=== PATIENT | male | born 1980 | race American Indian/Alaskan Native ===

== ENCOUNTER 2017-12-03 08:36 | Emergency (ER) | payer MEDICARE ==
[2017-12-03 08:36] VITALS: PULSE 69; BMI 30.7
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
[2017-12-03 11:44] VITALS: BP 143/86; PULSE 60; RESP 18; TEMP 98.7
--- NOTE | 2017-12-03 13:04 | VASCLAB ---
PROCEDURE: Right Lower Extremity Venous Duplex Exam. HISTORY: right leg pain, swelling, r/o DVT PRIORS: None. TECHNIQUE: Right common femoral, femoral, popliteal and posterior tibial, peroneal and great saphenous veins were evaluated. Flow was assessed with color Doppler, compressibility, assessment of phasic flow and augmentation response. Report prepared by Mya Pleitez RDCS, RVS FINDINGS: RIGHT: 1. Common Femoral Vein: 1.1. Compressibility - Fully compressible: Thrombus - None: Flow - Phasic: Augmentation -Normal: Reflux - None. 2. Femoral Vein: 2.1. Compressibility - Fully compressible: Thrombus - None: Flow - Phasic: Augmentation -Normal: Reflux - None. 3. Popliteal Vein: 3.1. Compressibility - Fully compressible: Thrombus - None: Flow - Phasic: Augmentation -Normal: Reflux - None. 4. Posterior Tibial Vein: 4.1. Compressibility - Fully compressible: Thrombus - None: Flow - Phasic: Augmentation -Normal: Reflux - None. 5. Peroneal Vein: 5.1. Compressibility - Fully compressible: Thrombus - None: Flow - Phasic: Augmentation -Normal: Reflux - None. 6. Great Saphenous Vein: 6.1. Compressibility - Fully compressible: Thrombus -None: Flow - Phasic: Augmentation - Normal: Reflux - None. OTHER FINDINGS: IMPRESSION: No evidence of deep or superficial vein thrombosis of the right lower extremity with excellent venous flow. Normal valve function noted of the right side. Normal venous flow noted in the left common femoral vein.
[2017-12-05 18:35] VITALS: O2SAT 98
== END 2017-12-03 11:45 | disposition home or self-care (01) ==
LOC: C.ER 08:36
DX: L03.115 Cellulitis of right lower limb (principal); I10 Essential (primary) hypertension; F17.210 Nicotine dependence, cigarettes, uncomplicated

== ENCOUNTER 2018-05-30 09:00 | Emergency (ER) | payer MEDICARE ==
[2018-05-30 09:00] VITALS: PULSE 69; BMI 30.7
[2018-05-30 09:04] VITALS: BP 128/87; PULSE 81; RESP 18; TEMP 97.6; O2SAT 98
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
== END 2018-05-30 09:54 | disposition home or self-care (01) ==
LOC: C.ER 09:00
DX: M54.31 Sciatica, right side (principal)

== ENCOUNTER 2018-08-08 09:55 | Emergency (ER) | payer MEDICARE ==
[2018-08-08 09:56] VITALS: PULSE 69; BMI 30.7
[2018-08-08 11:11] VITALS: RESP 18; TEMP 98.1
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
[2018-08-08] MEDS ORDERED: Oxycodone/Acetaminophen 5/325 mg Tab PO ONE (12:35)
[2018-08-08] MEDS ORDERED: Oxycodone/Acetaminophen 5/325 mg Tab ONE (13:20)
[2018-08-08 13:30] VITALS: BP 129/77; PULSE 68
[2018-08-08 13:33] VITALS: O2SAT 98
== END 2018-08-08 13:30 | disposition home or self-care (01) ==
LOC: C.ER 09:55
DX: M54.5 Low back pain (principal)

== ENCOUNTER 2018-08-16 14:41 | Observation (INO) | payer MEDICARE ==
[2018-08-16 14:41] VITALS: PULSE 69; BMI 30.7
[2018-08-16] MEDS ORDERED: Lidocaine 5% Patch TD ONE (15:32)
[2018-08-16] MEDS ORDERED: Lidocaine 5% Patch TD STA (15:33)
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
[2018-08-16] MEDS ORDERED: Oxycodone/Acetaminophen 5/325 mg Tab PO STA (19:24)
[2018-08-16 19:29] LABS: BASO # 0.1 K/uL (0.0-0.2); BASO % 0.8 % (0.0-2.0); EOS # 0.1 K/uL (0.0-0.7); EOS % 1.1 % (0.0-4.0); HEMOGLOBIN 16.1 g/dL (12.0-18.0); LYMPH # 2.6 K/uL (1.0-4.3); LYMPH % 25.1 % (20.0-40.0); MEAN CORPUSCULAR HEMOGLOBIN 31.5 pg (27.0-31.0); MEAN CORPUSCULAR HGB CONC 33.8 g/dL (33.0-37.0); MEAN PLATELET VOLUME 10.1 fL (7.2-11.7); MONO # 0.5 K/uL (0.0-0.8); MONO % 5.1 % (0.0-10.0); NEUT # 7.1 K/uL (1.8-7.0); NEUT % 67.9 % (50.0-75.0); NRBC % 0.1 % (0.0-2.0); RBC 5.12 Mil/uL (4.40-5.90); RED CELL DISTRIBUTION WIDTH 12.8 % (11.5-14.5); WHITE BLOOD COUNT 10.4 K/uL (4.8-10.8)
[2018-08-16] MEDS ORDERED: Oxycodone/Acetaminophen 5/325 mg Tab ONE ×2 (19:30→19:32)
[2018-08-16 19:41] LABS: ALB/GLOB RATIO 1.3 (1.0-2.1); ALBUMIN 4.6 g/dL (3.5-5.0); BLOOD UREA NITROGEN 15 mg/dL (9-20); CALCIUM 9.3 mg/dl (8.6-10.4); GFR NON-AFRICAN AMERICAN > 60
[2018-08-16 19:44] LABS: ALT/SGPT 18 U/L (21-72); AST/SGOT 28 U/L (17-59)
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
[2018-08-16] MEDS: Oxycodone/Acetaminophen 5/325 mg Tab PO PRN (23:14)
[2018-08-17] MEDS: Oxycodone/Acetaminophen 5/325 mg Tab PO PRN ×3 (07:48→19:37)
--- NOTE | 2018-08-17 08:28 | CT ---
CT bony pelvis HISTORY: Injury. Evaluate for fracture. COMPARISON: None available. Technique: Multiple contiguous axial images were performed through the bony pelvis without the use of intravenous contrast. This CT exam was performed using one or more of the following dose reduction techniques: Automated exposure control, adjustment of the mA and/or kV according to patient size, and/or use of iterative reconstruction technique. Findings: No evidence of acute displaced fracture or dislocation. Bilateral hip joints are preserved. Mild productive change and or mild osteophytosis noted at the superior acetabulum bilaterally. Mild narrowing of the hip joints bilaterally. Heterogeneous prostate. Mild atherosclerotic calcification plaque within the aorta and iliac vessels. 7 millimeter focal calcific density/calcification within the medial upper left thigh on series 3, image 121. Clinical correlation. Mild degenerative changes in the lower lumbar spine with grade 1 retrolisthesis of L5 on S1. Endplate sclerosis at the superior endplate of the S1 vertebral body. Impression: 1. Grade 1 retrolisthesis of L5 on S1. 2. 7 millimeter focal calcific density/calcification within the medial upper left thigh on series 3, image 121. Clinical correlation. 3. No evidence for acute displaced fracture or dislocation. If pain persists, consider correlation with MRI. A preliminary report was generated at 2:09 a.m. on 08/17/[address] Rajiv Turk from [employer].
[2018-08-17] MEDS ORDERED: Gadodiamide 287 mg/ml 20 ml IV ONE (09:59)
[2018-08-17] MEDS: Clotrimazole 1% Cream 15 GM TUBE TOP SCH ×2 (10:53→22:21)
--- NOTE | 2018-08-17 11:34 | MRI ---
Date of service: 08/17/2018 PROCEDURE: MR LUMBAR SPINE WITH AND WITHOUT CONTRAST HISTORY: Disc and nerve compression COMPARISON: None available. TECHNIQUE: Multiecho multiplanar sequences were performed through the lumbar spine with and without the use of intravenous contrast. 20 ml Omniscan was injected intravenously. FINDINGS: There is degenerative 10 mm retrolisthesis of L5 on S1. There straightening of the lumbar spine with loss of normal lumbar lordosis. There is no acute fracture or spondylolysis. Bone marrow signal is within normal limits. The conus medullaris terminates at a normal level and the nerve roots of cauda equina are normal. There is no abnormal intramedullary or leptomeningeal enhancement. The paraspinous soft tissues are normal. Imaged portion of the retroperitoneum demonstrates solitary left kidney. The right kidney is not identified in the right renal fossa. There is degeneration of the L5-S1 disc with mild loss of disc height. The remaining disc heights are maintained. Evaluation of individual disc levels demonstrate: T12-L1: No disc herniation, spinal canal stenosis or neural foraminal narrowing. L1-2: No disc herniation, spinal canal stenosis or neural foraminal narrowing. L2-3: No disc herniation, spinal canal stenosis or neural foraminal narrowing. L3-4: No disc herniation, spinal canal stenosis or neural foraminal narrowing. L4-5: Mild posterior disc bulge and mild ligamentum flavum infolding without central spinal canal stenosis. Mild bilateral facet arthropathy contribute to mild neural foraminal narrowing. L5-S1: Diffuse posterior disc bulge with superimposed broad-based central disc protrusion indents the ventral thecal sac with mild spinal canal stenosis. There is mild posterior displacement of traversing right S1 nerve root. Moderate bilateral facet arthropathy contribute to mild neural foraminal narrowing. OTHER FINDINGS: None. IMPRESSION: Moderate degenerative disc disease at L5-S1 with 10 mm retrolisthesis of L5 on S1, diffuse posterior disc bulge and superimposed broad-based central disc protrusion which indents the ventral thecal sac with mild spinal canal stenosis. Also noted is mild posterior displacement of the traversing right S1 nerve root. Moderate bilateral facet arthropathy contribute to mild neural foraminal narrowing.
[2018-08-17 16:06] VITALS: RESP 20
[2018-08-18] MEDS: Oxycodone/Acetaminophen 5/325 mg Tab PO PRN ×2 (03:59→12:20)
[2018-08-18] MEDS: Clotrimazole 1% Cream 15 GM TUBE TOP SCH ×2 (09:02→23:37)
[2018-08-18] MEDS ORDERED: Pneumococcal 23-Valent Vaccine IM ONE (10:00)
[2018-08-18] MEDS ORDERED: Influenza Vaccine 60 mcg/0.5 mL SYR (4YR UP) IM ONE (10:00)
--- NOTE | 2018-08-18 19:16 | CP.PCM.PN ---
Subjective - Date & Time of Evaluation Date of Evaluation: 08/17/18 Time of Evaluation: 19:15 - Subjective Subjective: Patient today had MRI, the report of the MRI currently pending. Continues to have a pain over the right side of the thigh region. No swelling noted. On pain management. We will continue the current treatment. I waiting for the report and will follow the patient Objective - Vital Signs/Intake and Output Vital Signs (last 24 hours): Temp Pulse Resp BP Pulse Ox 98.7 F 78 20 153/89 H 95 08/18/18 15:53 08/18/18 15:53 08/18/18 15:53 08/18/18 15:53 08/18/18 15:53 - Medications Medications: Current Medications Clotrimazole (Lotrimin 1%) 1 gm TOP Q12 [facility] Last Admin: 08/18/18 09:02 Dose: Not Given Diazepam (Valium) 5 mg PO TID [facility] Last Admin: 08/18/18 17:47 Dose: 5 mg Heparin Sodium (Porcine) (Heparin) 5,000 units SC Q12 [facility] Last Admin: 08/18/18 09:02 Dose: 5,000 units Oxycodone/Acetaminophen (Percocet 5/325 Mg Tab) 1 tab PO Q6H PRN PRN Reason: Pain, moderate (4-7) Stop: 08/19/18 22:21 Last Admin: 08/18/18 12:20 Dose: 1 tab - Labs Labs: 08/16/18 19:25 08/16/18 19:25
--- NOTE | 2018-08-18 19:17 | CP.PCM.PN ---
Subjective - Date & Time of Evaluation Date of Evaluation: 08/18/18 Time of Evaluation: 19:16 - Subjective Subjective: I reviewed the patient's MRI, showing multiple disc disease, and also disc prolapse. CAT scan of the pelvis and did not reveal any acute pathology. But the patient still continues to have a pain over the right ischial tuberosity area, associate with some pain in the thigh muscles. Most likely patient has a possible muscle pull, and associated with the tendinitis and the possible rupture of the tendon likely. Continue the pain management at this time. We will discharge the patient fasting in the morning. On observation at this time Objective - Vital Signs/Intake and Output Vital Signs (last 24 hours): Temp Pulse Resp BP Pulse Ox 98.7 F 78 20 153/89 H 95 08/18/18 15:53 08/18/18 15:53 08/18/18 15:53 08/18/18 15:53 08/18/18 15:53 - Medications Medications: Current Medications Clotrimazole (Lotrimin 1%) 1 gm TOP Q12 [facility] Last Admin: 08/18/18 09:02 Dose: Not Given Diazepam (Valium) 5 mg PO TID [facility] Last Admin: 08/18/18 17:47 Dose: 5 mg Heparin Sodium (Porcine) (Heparin) 5,000 units SC Q12 [facility] Last Admin: 08/18/18 09:02 Dose: 5,000 units Oxycodone/Acetaminophen (Percocet 5/325 Mg Tab) 1 tab PO Q6H PRN PRN Reason: Pain, moderate (4-7) Stop: 08/19/18 22:21 Last Admin: 08/18/18 12:20 Dose: 1 tab - Labs Labs: 08/16/18 19:25 08/16/18 19:25
[2018-08-19] MEDS: Oxycodone/Acetaminophen 5/325 mg Tab PO PRN ×2 (00:01→08:42)
[2018-08-19 08:15] VITALS: O2SAT 97
[2018-08-19 08:44] VITALS: BP 110/78; PULSE 75; TEMP 98.1
[2018-08-19] MEDS: Clotrimazole 1% Cream 15 GM TUBE TOP SCH (09:23)
== END 2018-08-19 10:50 | disposition home or self-care (01) ==
LOC: C.ER 14:41 → C.9E 19:24 → C.3T 21:57
PROVIDERS: ADMIT Internal Medicine; ATTEND Internal Medicine
DX: G89.29 Other chronic pain (principal); M54.5 Low back pain; R26.2 Difficulty in walking, not elsewhere classified; I13.0 Hypertensive heart and chronic kidney disease with heart failure and stage 1 through stage 4 chronic kidney disease, or unspecified chronic kidney disease; N18.9 Chronic kidney disease, unspecified; I50.9 Heart failure, unspecified; I48.91 Unspecified atrial fibrillation; E78.00 Pure hypercholesterolemia, unspecified; F17.210 Nicotine dependence, cigarettes, uncomplicated; F32.9 Major depressive disorder, single episode, unspecified; Z86.79 Personal history of other diseases of the circulatory system; Z86.711 Personal history of pulmonary embolism; Z98.890 Other specified postprocedural states; Z90.49 Acquired absence of other specified parts of digestive tract
CPT/HCPCS: 72158; 72192; 80053; 85025; 96372; 96374; 96375; 97161; 97530; 99284; A9579; G0378; G8978; G8979; J1644; J1885; J2060